=== PATIENT | male | born 1945 | race Caucasian/White ===

== ENCOUNTER → 2017-01-18 | Outpatient (CLI) | payer OTHER ==
[~2017-01-18] MED LIST: IOPAMIDOL (ISOVUE 370) 100 ML BTL IV ONE
== END ==
LOC: CIMAGING 08:00
PROVIDERS: ATTEND Family Medicine
DX: I71.4 Abdominal aortic aneurysm, without rupture (principal); K57.90 Diverticulosis of intestine, part unspecified, without perforation or abscess without bleeding; K44.9 Diaphragmatic hernia without obstruction or gangrene
CPT/HCPCS: 74174; Q9967

== ENCOUNTER → 2017-09-11 | Outpatient (CLI) | payer OTHER | LOC: CIMAGING 16:01 | PROVIDERS: ATTEND Family Medicine | DX: E78.5 Hyperlipidemia, unspecified (principal); I25.10 Atherosclerotic heart disease of native coronary artery without angina pectoris | CPT/HCPCS: 71046-PO ==

== ENCOUNTER 2017-09-24 08:07 | Inpatient (IN) | payer OTHER ==
--- NOTE | 2017-09-18 14:06 | GHP ---
[f rep st] PREOP HISTORY AND PHYSICAL CHIEF COMPLAINT: Right shoulder pain and weakness. HISTORY OF PRESENT ILLNESS: The patient is a 72-year-old male with a long history of right shoulder pain and weakness worsening with use and with time. Imaging studies revealed a large, full-thickness rotator cuff tear as well as glenohumeral joint arthritis. ALLERGIES: He has no drug allergies. CURRENT MEDICATIONS: Atorvastatin, carvedilol, Coreg, ramipril, tramadol and Zyrtec. PRIOR MEDICAL PROBLEMS: Coronary artery disease. PRIOR SURGERIES: Bilateral cataracts and aortic aneurysm. SOCIAL HISTORY: He is a former smoker. Social drinker. PHYSICAL EXAMINATION: EYES: Pupils equal, round, and reactive to light. CHEST : Clear to auscultation. HEART: Regular rate and rhythm. ABDOMEN: Soft and nontender. EXTREMITIES: Right shoulder reveals significant decreases in range of motion as well as weakness to external rotation and supraspinatus. IMAGING DATA: The MRI reveals a full-thickness rotator cuff tear with atrophy of the supraspinatus as well as osteoarthritic changes of the glenohumeral joint. ASSESSMENT: Patient is status post right shoulder osteoarthritis with chronic rotator cuff tear. PLAN: Taken to the operating room to undergo a reverse right total shoulder arthroplasty. /[id number]/MODL MTDD
--- NOTE | 2017-09-24 07:29 | PDHPUP ---
History & Physical Update H&P update statement: This history and physical update is based on an assessment of the patient which was completed after admission or registration (within 24 hours), but prior to the surgery/procedure. H&P update: H&P reviewed & patient examined, no change in patient's condition since H&P completed
[~2017-09-24 08:07] MED LIST changes: +ACETAMINOPHEN 500 MG TAB PO ONE; -IOPAMIDOL (ISOVUE 370) 100 ML BTL IV ONE; +PREGABALIN 150 MG CAP PO ONE; +ROPIVACAINE 0.2% 80 MG, EPINEPHrine 0.2 MG, KETOROLAC TROMETHAMINE 30 MG, morphINE 10 M... IU ONE; +TRANEXAMIC ACID 3,000 MG in NS 50 ML IRR ONE; +ceFAZolin 2 GM/SWFI 2 GM/20 ML SYR IVP ONE
[2017-09-24] MEDS ORDERED: POLYMYXIN B SULFATE 500,000 UNIT/10 ML SYR IRR ONE (08:16)
[2017-09-24] MEDS ORDERED: BACITRACIN 50,000 UNITS/10 ML SYR IRR ONE (08:16)
[2017-09-24] MEDS ORDERED: BUPIVACAINE/EPI 0.5% 30 ML SDV ONE (08:16)
[2017-09-24] MEDS ORDERED: TRANEXAMIC ACID 3,000 MG/50 ML BAG IRR ONE (08:17)
[2017-09-24] MEDS ORDERED: LR 1,000 ML IV ONE (08:39)
[2017-09-24] MEDS ORDERED: PREGABALIN 150 MG CAP ONE (09:22)
[2017-09-24] MEDS ORDERED: ACETAMINOPHEN 500 MG TAB ONE (09:23)
[2017-09-24] MEDS ORDERED: ceFAZolin 2 GM/SWFI 20 ML SYR IVP ONE (09:23)
--- NOTE | 2017-09-24 10:37 | PDANEPAE ---
ANE History of Present Illness OA and painful shoulder ANE Past Medical History - Cardiovascular History Hx Hypertension: Yes Hx Arrhythmias: No Hx Chest Pain: No Hx Coronary Artery / Peripheral Vascular Disease: Yes Hx CHF / Valvular Disease: No Hx Palpitations: No Cardiovascular History Comment: [place] 2001 - Pulmonary History Hx COPD: No Hx Asthma/Reactive Airway Disease: No Hx Recent Upper Respiratory Infection: No Hx Oxygen in Use at Home: No Hx Sleep Apnea: No Sleep Apnea Screening Result - Last Documented: Positive Pulmonary History Comment: CURRENTLY HAS URI AND ON ANTIBIOTIC - Neurologic History Hx Cerebrovascular Accident: No Hx Seizures: No Hx Dementia: No - Endocrine History Hx Diabetes: No - Renal History Hx Renal Disorders: No - Liver History Hx Hepatic Disorders: No - Neurological & Psychiatric Hx Hx Neurological and Psychiatric Disorders: No - Cancer History Hx Cancer: No - Congenital Disorder History Hx Congenital Disorders: No - GI History Hx Gastrointestinal Disorders: No - Other Health History Other Health History: PHERIPHERAL VASCULAR DX. CHANDAN SHLDR PAIN AND DISCOMFORT - Chronic Pain History Chronic Pain: Yes (RT SHLDR) - Surgical History Prior Surgeries: AAA 04/2003. CHANDAN CATARACT. DEVIATED SEPTUM ANE Review of Systems Review of Systems: - Exercise capacity METS (RN): 4 METS ANE Patient History - Allergies Allergies/Adverse Reactions: hydromorphone [From Dilaudid] Allergy (Verified 09/24/17 09:33) nausea/vomiting - Home Medications Home medications: home medication list seen and reviewed Home Medications: Ascorbic Acid [Vitamin C 500 mg (*)] 500 mg PO DAILY 09/10/17 [Last Taken 1 Week Ago ~09/17/17] Aspirin EC [Aspirin EC 81 mg (*)] 81 mg PO HS 09/10/17 [Last Taken 2 Months Ago ~07/25/17] Atorvastatin Calcium [Lipitor 80 mg] 160 mg PO DAILY 09/10/17 [Last Taken ] Carvedilol [Coreg (*)] 3.125 mg PO BIDMEAL 09/10/17 [Last Taken 09/24/17] Cholecalciferol Vit D3 [Vitamin D3 (*)] 2,000 units PO DAILY 09/10/17 [Last Taken 1 Week Ago ~09/17/17] Fluticasone Nasal [Flonase Nasal [place] (RX)] 1 sprays EACHNARE DAILY PRN [Last Taken 09/23/17] Herbals/Supplements -Info Only 1 ea PO HS 09/10/17 [Last Taken 1 Week Ago ~09/17] Ibuprofen [Motrin (*)] 200 - 600 mg PO DAILY PRN 09/10/17 [Last Taken 1 Week Ago ~09/17/17] Montelukast Sodium [Singulair 10 mg (*)] 10 mg PO DAILY@1800 PRN 09/10/17 [Last Taken 2 Months Ago ~07/25/17] Multivitamins [Multivitamin (*)] 1 each PO DAILY 09/10/17 [Last Taken 1 Week Ago ~09/17/17] Niacin [Niacin 500 mg (*)] 500 mg PO DAILY 09/10/17 [Last Taken 1 Week Ago ~05/27] Ramipril [Altace 2.5mg (*)] 2.5 mg PO DAILY 09/10/17 [Last Taken 09/24/17] Vitamin B Complex [B Complex] 1 each PO DAILY 09/10/17 [Last Taken 1 Week Ago ~ 09/17/17] - NPO status NPO Since - Liquids (Date): 09/24/17 NPO Since - Liquids (Time): 07:00 NPO Since - Solids (Date): 09/23/17 NPO Since - Solids (Time): 20:00 - Anes Hx Anes Hx: no prior problems - Smoking Hx Smoking Status: Former smoker ANE Labs/Vital Signs - Vital Signs Blood Pressure: 139/77 Heart Rate: 64 Respiratory Rate: 16 O2 Sat (%): 91 Height: 187.96 cm Weight: 97.522 kg ANE Physical Exam - Airway Neck exam: FROM Mallampati Score: Class 2 Mouth exam: normal dental/mouth exam - Pulmonary Pulmonary: no respiratory distress - Cardiovascular Cardiovascular: regular rate and rhythym - ASA Status ASA Status: III ANE Anesthesia Plan Anesthesia Plan: GA w LMA Regional Anesthesia: supraclavicular BP NB
[2017-09-24] MEDS ORDERED: MIDAZOLAM 2 MG/2 ML VIAL IVP ONE (10:38)
[2017-09-24] MEDS ORDERED: ROPIVACAINE HCL 150 MG/30 ML INJ ONE ×2 (10:45→10:50)
[2017-09-24] MEDS ORDERED: fentaNYL 100 MCG/2 ML INJ ONE ×2 (10:45→13:22)
[2017-09-24] MEDS ORDERED: PROPOFOL 200 MG/20 ML VIAL ONE (10:45)
[2017-09-24] MEDS ORDERED: CALCIUM CHLORIDE 1 GM/10 ML INJ ONE (11:31)
[2017-09-24] MEDS ORDERED: THROMBIN (BOVINE) 5,000 UNIT VIAL TP ONE (11:31)
[2017-09-24] MEDS ORDERED: LIDOCAINE 2% 5 ML SDV ONE (11:34)
[2017-09-24] MEDS ORDERED: DEXAMETHASONE 4 MG/ML VIAL ONE (11:34)
[2017-09-24] MEDS ORDERED: PROMETHAZINE HCL 25 MG/ML INJ IVP PRN (12:19)
[2017-09-24] MEDS ORDERED: ONDANSETRON 4 MG/2 ML VIAL IVP PRN ×2 (12:19→13:46)
[2017-09-24] MEDS ORDERED: fentaNYL 100 MCG/2 ML INJ IVP PRN (12:19)
[2017-09-24] MEDS ORDERED: NALOXONE HCL 0.4 MG/ML INJ IVP PRN (12:19)
[2017-09-24] MEDS ORDERED: ONDANSETRON 4 MG/2 ML VIAL ONE (12:22)
[2017-09-24] MEDS ORDERED: TEMAZEPAM 15 MG CAP PO PRN (13:46)
[2017-09-24] MEDS ORDERED: OXYCODONE/APAP 5/325 TAB PO PRN (13:46)
--- NOTE | 2017-09-24 13:46 | POSTOPPROG ---
Post Op Note Date of Operation: 09/24/17 Surgeon: Simona Arreola Braiding Machine Tender: roselyn Anesthesiologist: selina Anesthesia: LMA, Other (Specify) Pre-op Diagnosis: r shoulder oa with RCT Procedure: reverse r tsa Inf/Abcess present in the surg proc area at time of surgery?: No Depth: Deep Incisional (Fascial) EBL: 100-500
[2017-09-24] MEDS ORDERED: TAPENTADOL HCL 50 MG TAB PO PRN (13:49)
[2017-09-24] MEDS ORDERED: FLUTICASONE NASAL 120 SPRAYS/16 GM MDI EACHNARE PRN (13:49)
--- NOTE | 2017-09-24 13:55 | POSTANESTH ---
Post Anesthetic Evaluation Cardiovascular Status: Normal, Stable Respiratory Status: Normal, Stable Level of Consciousness/Mental Status: Can Participate in Eval Pain Control: Adequate, Prn Tx Ordered Nausea/Vomiting Control: Adequate, Prn Tx Ordered Complications Possibly Related to Anesthesia: None Noted
[2017-09-24] MEDS ORDERED: ceFAZolin 2 GM/DEXTROSE 100 ML IV SCH (14:00)
--- NOTE | 2017-09-24 14:41 | GOP ---
[f rep st] OPERATIVE REPORT DATE OF OPERATION: 09/24/2017 SURGEON: Simona Arreola MD TAKE DOWN INSPECTOR: Kamar Soriano, DAYLINA, LSA, whose presence was medically necessary. ANESTHESIA: LMA plus scalene nerve block per surgeon's request. PREOPERATIVE DIAGNOSIS: Right shoulder osteoarthritis with rotator cuff tear. POSTOPERATIVE DIAGNOSIS: Right shoulder osteoarthritis with rotator cuff tear. PROCEDURE PERFORMED: Right reverse total shoulder arthroplasty. FINDINGS: INDICATIONS: This is a 72-year-old male with a long history of right shoulder pain worsening with us e and with time despite multiple conservative measures. Imaging studies have revealed chronic rotato r cuff tear as well as severe osteoarthritic changes to the shoulder. He wishes to have surgery in or bev to resolve the problem. DESCRIPTION OF PROCEDURE: Patient brought to the operating room after the right side had been identi fied as correct side by the patient, nurse and physician. Once in the operating room, he was given a scalene block on the right side then placed under general anesthesia using LMA. Once asleep, he was p laced in a beach chair position with the right upper extremity sterilely prepped and draped in usual fashion using GSI solution. Once prepped and draped, a linear incision was made starting at the axil enriqueta fold and heading just lateral to the coracoid process with sharp dissection carried down through the skin and subcutaneous layers and bleeding controlled using electrocautery. Blunt dissection was carried down through the deltopectoral interval with the cephalic vein carried with the pectoralis. Deeper dissection the fascia from the conjoined tendon giving exposure to the capsule below . There was no discernible supraspinatus or significant subscapularis but thick inflamed capsule arou nd the actual shoulder itself. This was incised approximately a centimeter off its attachment onto th e shoulder. There was no biceps tendon noted although the biceps groove was in the area. He was noted to have a great amount of spurring associated with the humeral head as well as [id number] osteoart hritic changes to the humeral head and glenoid. A 30 degree offset guide was placed against the prox imal portion of the humerus, was marked using electrocautery and an oscillating saw was used to cut t he humeral head off. Once completed, the canal finder was placed in the humerus at which point multip le broaches were placed within the shoulder and a size 16 seemed to fit best. A size 16 was then att ached onto a reversed body on a large body. Trial was then placed within the humeral canal and a ream er creating a concavity within the proximal humerus was passed over the neck associated with this. On ce completed, attention was turned to the glenoid with the arm brought to a more neutral position and able to be subluxed posteriorly. Soft tissue was cleared from around the end of the glenoid and the bony spurs were removed from around the edge of the glenoid. Once we had adequately cleared, a wire g uide was passed just inferior to the equator of the glenoid itself and then a glenoid reamer was pass ed over the guidewire in order to achieve bleeding bone and then a central post drill was passed over the guidewire into the glenoid. Rill guide was then placed into the center hole and drill holes were made both superiorly and inferiorly for the glenoid base plate, at which point, the wound was thorou ghly irrigated with antibiotic solution. A 15 mm base plate was placed into the glenoid and noted to fit securely. A center post screw as well as superior, inferior, anterior and posterior screws were able to be placed in the glenoid achieving good fixation with each screw. A trial head was put into place and noted to fit securely. Therefore, a 5 mm concentric glenosphere was put into place and no tasha to fit securely. Attention was turned back to the humerus, with the trial removed and a 16 stem with a large reverse body was put into place. Multiple trials were used and noted that a +9 retentiv e polyethylene liner would fit best. Therefore, the humeral component was thoroughly irrigated. The retentive +9 poly liner was put into place. The shoulder was reduced, noted to fit securely with go od range of motion and good stability. The wound was again thoroughly irrigated with antibiotic solu tion. 0 Vicryl suture were used to close the capsular layer with plasma gel placed intra-articularly after joint cocktail had been injected into the posterior capsule and along the periosteum associate d with the glenoid and the proximal humerus. Tranexamic acid was also injected into the intracapsula r portion of the glenohumeral joint. Tranexamic acid was then irrigated through the outside of the c apsular layer and 0 Vicryl suture was used to tag the deltopectoral interval. An 0 Vicryl and 2-0 Vi cryl suture were used for the subcutaneous layers, and a 3-0 V-Loc suture in a running subcuticular s titch used for the skin. Then, 30 cc of Marcaine was infused around the actual incision itself and t he wound was then dressed with Steri-Strips, Xeroform, 4 x 4, and Tegaderm. He was completely undrap ed in the operating room, had a shoulder immobilizer placed on the right upper extremity. He was the n woken up, extubated, transferred onto a bed, sent to recovery room in good condition. /[id number]/MODL
[2017-09-24] MEDS: ACETAMINOPHEN 325 MG TAB PO SCH ×3 (15:25→22:24)
[2017-09-24] MEDS ORDERED: MONTELUKAST SODIUM 10 MG TAB PO PRN (18:00)
[2017-09-24] MEDS: ceFAZolin 2 GM/DEXTROSE 100 ML IV SCH (18:02)
[2017-09-24] MEDS: CARVEDILOL 3.125 MG TAB PO SCH (18:02)
[2017-09-24] MEDS: KETOROLAC 15 MG/1 ML SDV IVP SCH (18:04)
[2017-09-24] MEDS: traMADol 50 MG TAB PO SCH (18:05)
[2017-09-24] MEDS ORDERED: ASPIRIN EC 81 MG TAB PO SCH (21:00)
[2017-09-25] MEDS: KETOROLAC 15 MG/1 ML SDV IVP SCH ×2 (03:23→06:04)
[2017-09-25] MEDS: traMADol 50 MG TAB PO SCH ×2 (03:24→06:04)
[2017-09-25] MEDS: ACETAMINOPHEN 325 MG TAB PO SCH ×2 (03:31→06:05)
[2017-09-25] MEDS: ceFAZolin 2 GM/DEXTROSE 100 ML IV SCH (03:31)
[2017-09-25 03:41] VITALS: RESP 16
[2017-09-25 07:40] VITALS: PULSE 60; TEMP 98.1; O2SAT 92
[2017-09-25] MEDS: CARVEDILOL 3.125 MG TAB PO SCH (08:08)
[2017-09-25] MEDS ORDERED: NIACIN 500 MG TAB PO SCH (09:00)
[2017-09-25] MEDS ORDERED: ATORVASTATIN CALCIUM PO SCH (09:00)
[2017-09-25] MEDS ORDERED: ATORVASTATIN CALCIUM 40 MG TAB PO SCH (09:00)
[2017-09-25] MEDS ORDERED: RAMIPRIL 2.5 MG CAP PO SCH (09:00)
[2017-09-25] MEDS ORDERED: ASCORBIC ACID 500 MG TAB PO SCH (09:00)
[2017-09-25 09:01] VITALS: BP 102/60
--- NOTE | 2017-09-25 09:13 | SOAPPROG ---
SOAP Progress Note Assessment/Plan: Assessment: Plan: - incentive spirometry - can d/c if sats improve 09/25/17 09:12 Subjective: Doing well, pain minimal, feels ready to go home, denies dyspnea Objective: Vital Signs Temp Pulse Resp BP Pulse Ox 36.7 C 60 16 102/60 92 09/25/17 07:38 09/25/17 08:08 09/25/17 07:38 09/25/17 09:01 09/25/17 07:38 09/24/17 09/25/17 09/26/17 05:59 05:59 05:59 Intake Total 1300 Output Total 775 Balance 525 O2 sat 88 on 1.5 L, dressing cdi, compartments soft, nvi - Time Spent With Patient Time Spent With Patient: 10 - Pending Discharge Pending Discharge Within 24 Hours: Yes Pending Discharge Within 48 Hours: No Pending Discharge Date: 09/26/17 Pending Discharge Time: 11:00 ICD10 Worksheet Patient Problems: Problems Problem Status Onset Arthritis, shoulder region Acute - ICD10 Problem Qualifiers (1) Arthritis, shoulder region
--- NOTE | 2017-09-25 10:39 | ASDISCHSUM ---
Discharge Information Plan Status:Home with No Needs Medically Cleared to Leave: Discharge Date:09/25/2017 10:15 AM CM D/C Disposition:Home, Routine, Self-Care ADT D/C Disposition:Home, Routine, Self-Care Projected Discharge Date:09/25/2017 10:15 AM Transportation at D/C: Discharge Delay Reason: Follow-Up Date:09/25/2017 10:15 AM Discharge Slot: Final Diagnosis: Placement Information Patient Contact Information Contact Name:GREGORIO Relationship: Address:[address] City:[place] Phone: [facility]/Zip Code:[place] [address] Email: Financial Information Financial Class:Medicare Advantage Plans Primary Plan Desc:[employer] PPO MEDICARE Primary Plan Number:[id number] Secondary Plan Desc: Secondary Plan Number: Assessment Information [facility] CM Progress Note CM Note CM Note Notes: Pt medically stable for d/c, no CM d/c needs identified. Date Signed: 09/25/2017 10:38 AM Electronically Signed By:TENA Mcfarland Intervention Information
== END 2017-09-25 10:15 | disposition home or self-care (01) | DRG 483 ==
LOC: F3N 08:07
PROVIDERS: ADMIT Orthopaedic Surgery; ATTEND Orthopaedic Surgery
PROC: 0RRJ00Z Replacement of Right Shoulder Joint with Reverse Ball and Socket Synthetic Substitute, Open Approach (ICD-10-PCS; principal; 2017-09-24 10:00)
DX: M75.121 Complete rotator cuff tear or rupture of right shoulder, not specified as traumatic (principal); M19.011 Primary osteoarthritis, right shoulder; I25.10 Atherosclerotic heart disease of native coronary artery without angina pectoris; Z87.891 Personal history of nicotine dependence; I10 Essential (primary) hypertension; I25.2 Old myocardial infarction
CPT/HCPCS: C1713; J0171; J0690; J1100; J1885; J2250; J2405; J2704; J2795; J3010

== ENCOUNTER 2018-03-14 10:56 | Day surgery (SDC) | payer OTHER ==
--- NOTE | 2018-03-13 21:42 | GHP ---
[f rep st] PRE-OP HISTORY AND PHYSICAL CURRENT COMPLAINT: Right shoulder pain. HISTORY OF PRESENT ILLNESS: The patient is a 72-year-old male, who has previously undergone a right total shoulder arthroplasty, had been doing very well up until last week when he tugged hard on a hose, felt a clunk in his shoulder. X-ray exams revealed loosening of his Glenosphere. He wishes to have surgery in order to resolve the problem. ALLERGIES: He lists no prior drug allergies. CURRENT MEDICATIONS: Include atorvastatin, carvedilol, Coreg, Flonase, ramipril , and Zyrtec. PRIOR MEDICAL PROBLEMS: Include coronary artery disease, prior heart attack. PRIOR SURGERIES: Include a right reverse total shoulder replacement. Bilateral cataract surgery. An aortic aneurysm. SOCIAL HISTORY: He is a former smoker and a social drinker. PHYSICAL EXAM: EXTREMITIES: Patient is intact distally into the arm with pain to range of motion and metallic noise to range of motion. EYES: His pupils are equal, round, and reactive to light. CHEST: Clear to auscultation. HEART : Regular rate and rhythm. ABDOMEN: Soft and nontender. IMAGING: X-ray exam reveals a loosened Glenosphere. ASSESSMENT AND PLAN: Patient is status post right reverse total shoulder failure. Plan is to take him to the operating room to undergo a right total shoulder revision with reimplantation of Glenosphere. /[id number]/MODL MTDD
[2018-03-14] MEDS ORDERED: ceFAZolin 2 GM/DEXTROSE 100 ML IV ONE (11:19)
[2018-03-14] MEDS ORDERED: ACETAMINOPHEN 500 MG TAB PO ONE (11:19)
[2018-03-14] MEDS ORDERED: TRANEXAMIC ACID 3,000 MG in NS (SYRINGE) 50 ML IRR ONE (11:19)
[2018-03-14] MEDS ORDERED: ROPIVACAINE 0.2% 80 MG, EPINEPHrine 0.2 MG, KETOROLAC TROMETHAMINE 30 MG, morphINE 10 M... IU ONE (11:19)
[2018-03-14] MEDS ORDERED: LIDOCAINE 1% 2 ML INJ ID PRN (11:20)
[2018-03-14] MEDS ORDERED: LR 1,000 ML IV ONE (11:20)
[2018-03-14] MEDS ORDERED: ROPIVACAINE HCL 150 MG/30 ML INJ ONE (11:40)
[2018-03-14] MEDS ORDERED: BUPIVACAINE/EPI 0.5% 30 ML SDV ONE (11:41)
[2018-03-14] MEDS ORDERED: POLYMYXIN B SULFATE 500,000 UNIT/10 ML SYR IRR ONE (11:42)
[2018-03-14] MEDS ORDERED: fentaNYL 100 MCG/2 ML INJ ONE ×2 (11:53→13:52)
--- NOTE | 2018-03-14 12:15 | PDANEPAE ---
ANE History of Present Illness right shoulder arthroplasty ANE Past Medical History - Cardiovascular History Hx Hypertension: Yes Hx Arrhythmias: No Hx Chest Pain: No Hx Coronary Artery / Peripheral Vascular Disease: Yes Hx CHF / Valvular Disease: No Hx Palpitations: No Cardiovascular History Comment: [place] 2001 - Pulmonary History Hx COPD: No Hx Asthma/Reactive Airway Disease: No Hx Recent Upper Respiratory Infection: No Hx Oxygen in Use at Home: No Hx Sleep Apnea: No Pulmonary History Comment: CURRENTLY HAS URI AND ON ANTIBIOTIC - Neurologic History Hx Cerebrovascular Accident: No Hx Seizures: No Hx Dementia: No - Endocrine History Hx Diabetes: No Hypothyroid: No Hyperthyroid: No Obesity: no - Renal History Hx Renal Disorders: No - Liver History Hx Hepatic Disorders: No - Neurological & Psychiatric Hx Hx Neurological and Psychiatric Disorders: No - Cancer History Hx Cancer: No - Congenital Disorder History Hx Congenital Disorders: No - GI History Hx Gastrointestinal Disorders: No - Other Health History Other Health History: PHERIPHERAL VASCULAR DX. CHANDAN SHLDR PAIN AND DISCOMFORT - Chronic Pain History Chronic Pain: Yes (RT SHLDR) - Surgical History Prior Surgeries: AAA 04/2003. CHANDAN CATARACT. DEVIATED SEPTUM ANE Review of Systems Review of systems is: negative Review of Systems: ANE Patient History - Allergies Allergies/Adverse Reactions: hydromorphone [From Dilaudid] Allergy (Verified 09/24/17 09:33) nausea/vomiting - Home Medications Home medications: home medication list seen and reviewed Home Medications: Ascorbic Acid [Vitamin C 500 mg (*)] 500 mg PO DAILY 09/10/17 [Last Taken 06:30] Aspirin EC [Aspirin EC 81 mg (*)] 81 mg PO HS 09/10/17 [Last Taken 1 Month Ago ~ 02/12/18] Atorvastatin Calcium [Lipitor 80 mg] 160 mg PO DAILY 09/10/17 [Last Taken 06:30] Carvedilol [Coreg (*)] 3.125 mg PO BIDMEAL 09/10/17 [Last Taken 03/14/18 08:00] Cholecalciferol Vit D3 [Vitamin D3 (*)] 2,000 units PO DAILY 09/10/17 [Last Taken 03/13/18 06:30] Fluticasone Nasal [Flonase Nasal [place]] 1 sprays EACHNARE DAILY PRN 09/10/17 [ Last Taken 1 Month Ago ~02/12/18] Herbals/Supplements -Info Only 1 ea PO HS 09/10/17 [Last Taken 03/13/18 06:30] Ibuprofen [Motrin (*)] 200 - 600 mg PO DAILY PRN 09/10/17 [Last Taken 03/13/18 06:30] Montelukast Sodium [Singulair 10 mg (*)] 10 mg PO DAILY@1800 PRN 09/10/17 [Last Taken 1 Month Ago ~02/12/18] Multivitamins [Multivitamin (*)] 1 each PO DAILY 09/10/17 [Last Taken 03/13/18 06:30] Niacin [Niacin 500 mg (*)] 500 mg PO DAILY 09/10/17 [Last Taken 03/13/18 06:30] Ramipril [Altace 2.5mg (*)] 2.5 mg PO DAILY 09/10/17 [Last Taken 03/13/18 06:30] Vitamin B Complex [B Complex] 1 each PO DAILY 09/10/17 [Last Taken 03/13/18 06: 30] [place] 5/325 (*) 03/14/18 [Last Taken 03/13/18] - Anes Hx Anes Hx: no prior problems - Smoking Hx Smoking Status: Former smoker ANE Labs/Vital Signs - Vital Signs Blood Pressure: 127/76 Heart Rate: 58 Respiratory Rate: 16 O2 Sat (%): 88 Height: 187.96 cm Weight: 102.058 kg ANE Physical Exam - Airway Neck exam: FROM Mallampati Score: Class 1 Mouth exam: normal dental/mouth exam - Pulmonary Pulmonary: no respiratory distress - Cardiovascular Cardiovascular: regular rate and rhythym - ASA Status ASA Status: III ANE Anesthesia Plan Anesthesia Plan: general endotracheal anesthesia Regional Anesthesia: interscalene BP NB
[2018-03-14] MEDS ORDERED: MIDAZOLAM 2 MG/2 ML VIAL IVP ONE (12:16)
[2018-03-14] MEDS ORDERED: MIDAZOLAM 2 MG/2 ML VIAL ONE (12:18)
[2018-03-14] MEDS ORDERED: PROPOFOL 200 MG/20 ML VIAL ONE (12:20)
[2018-03-14] MEDS ORDERED: DEXAMETHASONE 4 MG/ML VIAL ONE (12:25)
[2018-03-14] MEDS ORDERED: LIDOCAINE 2% 5 ML SDV ONE (12:25)
[2018-03-14] MEDS ORDERED: ONDANSETRON 4 MG/2 ML VIAL ONE (12:25)
[2018-03-14] MEDS ORDERED: THROMBIN (BOVINE) 5,000 UNIT VIAL TP ONE (13:01)
[2018-03-14] MEDS ORDERED: CALCIUM CHLORIDE 1 GM/10 ML INJ ONE (13:01)
--- NOTE | 2018-03-14 14:20 | POSTANESTH ---
Post Anesthetic Evaluation Cardiovascular Status: Normal, Stable Respiratory Status: Normal, Stable Level of Consciousness/Mental Status: Can Participate in Eval, Alert and Oriented Pain Control: Adequate, Prn Tx Ordered Nausea/Vomiting Control: Adequate, Prn Tx Ordered Complications Possibly Related to Anesthesia: None Noted
[2018-03-14] MEDS ORDERED: ALBUTEROL 3 ML DEYVIAL IH PRN (15:15)
[2018-03-14] MEDS ORDERED: NALOXONE HCL 0.4 MG/ML INJ IVP PRN (15:15)
[2018-03-14] MEDS ORDERED: LR 500 ML IV PRN (15:15)
[2018-03-14] MEDS ORDERED: fentaNYL 100 MCG/2 ML INJ IVP PRN (15:15)
[2018-03-14] MEDS ORDERED: PROMETHAZINE HCL 25 MG/ML INJ IVP PRN (15:15)
[2018-03-14] MEDS ORDERED: HYDROCODONE/APAP 5/325 TAB PO PRN (15:15)
[2018-03-14] MEDS ORDERED: ONDANSETRON 4 MG/2 ML VIAL IVP PRN (15:15)
[2018-03-14] MEDS ORDERED: ACETAMINOPHEN 500 MG TAB PO PRN (15:15)
[2018-03-14] MEDS ORDERED: oxyCODONE IR 5 MG TAB PO PRN (15:15)
[2018-03-14] MEDS ORDERED: LABETALOL HCL 5 MG/ML 20 ML MDV IVP PRN (15:15)
[2018-03-14] MEDS ORDERED: ceFAZolin 2 GM/DEXTROSE 100 ML IV SCH (15:55)
[2018-03-14] MEDS ORDERED: OXYCODONE/APAP 5/325 TAB PO PRN (15:55)
--- NOTE | 2018-03-14 15:55 | POSTOPPROG ---
Post Op Note Date of Operation: 03/14/18 Surgeon: Simona Arreola Anesthesia: GET(General Endotracheal), Other (Specify) Pre-op Diagnosis: r reverse TSA failure Procedure: r reverse TSA revision Inf/Abcess present in the surg proc area at time of surgery?: No Depth: Deep Incisional (Fascial) EBL: 100-500
--- NOTE | 2018-03-14 16:47 | GOP ---
[f rep st] OPERATIVE REPORT DATE OF OPERATION: 03/14/2018 SURGEON: Simona Arreola MD ANESTHESIA: Endotracheal intubation plus scalene nerve block per surgeon's request. PREOPERATIVE DIAGNOSIS: Right reverse total shoulder hardware failure. POSTOPERATIVE DIAGNOSIS: Right reverse total shoulder hardware failure. PROCEDURE PERFORMED: Right reverse total shoulder revision. FINDINGS: INDICATIONS: This is a 72-year-old male, who had previously undergone a right reverse total shoulder arthroplasty. He had been doing very well with high functioning up until several days ago when he s tates he pulled really hard on a hose, felt and heard a pop within the shoulder, and had immediate we akness. X-ray exam revealed the Glenosphere having disarticulated from the base plate. He wished to have surgery in order to resolve the problem. DESCRIPTION OF PROCEDURE: Patient was brought to the operating room. After the right side had been identified as correct side by the patient, nurse, and physician once in the operating room, he was gi indira a scalene block on the right side then placed under general anesthesia using endotracheal intubat ion. Once asleep, he was placed in a beach chair position with the right upper extremity sterilely p repped and draped in usual fashion using GSI solution. Once prepped and draped, incision was made al anita the old incision extending from the coracoid process to the axillary crease with sharp dissection carried down through the skin and subcutaneous layers with bleeding controlled using electrocautery. The deltopectoral interval was found and was able to be dissected from the abundant amount of scar tissue within the area. The deltoid was able to be retracted laterally and the pectoralis medially, getting access to the capsule. Below the capsule was then incised. An abundant amount of serosangui neous fluid was within the shoulder joint itself. Exposure was performed. The residual polyethylene liner in the humerus was removed with using combination of [place] and osteotome. Once removed, the d isplaced Glenosphere was able to be found. The base plate was thoroughly irrigated with an antibioti c solution including the rest of the shoulder over a liter of irrigation used in the area, and the ce ntric 5 mm Glenosphere was then put into place and noted to fit securely. Once fit in securely, tria l reduction was performed. We noted a +9 standard poly liner seemed to fit best. It gave good stabi lity without impinging on the inferior portion of the scapula. Therefore, a 9 mm standard polyethyle ne liner was snapped into the humeral portion. Once snapped into place, the arm was able to be reduc ed, was able have good range of motion and good stability. The wound was then thoroughly irrigated a gain with another liter of antibiotic solution. The posterior portion of the shoulder was injected u sing a joint cocktail and then tranexamic acid irrigated through the shoulder in order to alleviate b leeding and plasma gel placed within the glenohumeral joint. The capsule and the deeper muscular lay ers were closed using 0 Vicryl suture in a [id number] type stitch. The deltopectoral interval w as closed using tagging sutures of 0 Vicryl suture, and 0 Vicryl and 2-0 Vicryl sutures were used to close the subcutaneous layers. A 3-0 V-Loc suture was used in a running subcuticular stitch for the skin. The wound was then dressed with Steri-Strips, Xeroform, 4 x 4, and Tegaderm. He was completel y undraped in the operating room and had the right upper extremity placed in a sling. He was then wo senthil up, extubated, transferred onto a stretcher, and sent to recovery room in good condition. /[id number]/MODL
[2018-03-14] MEDS ORDERED: KETOROLAC 15 MG/1 ML SDV IVP SCH (18:00)
[2018-03-14] MEDS ORDERED: ACETAMINOPHEN 325 MG TAB PO SCH (18:00)
[2018-03-14 19:05] VITALS: BP 107/66
== END 2018-03-14 18:45 | disposition home or self-care (01) ==
LOC: FSGY 10:56
PROVIDERS: ATTEND Orthopaedic Surgery
PROC: 0RRJ00Z Replacement of Right Shoulder Joint with Reverse Ball and Socket Synthetic Substitute, Open Approach (ICD-10-PCS; principal; 2018-03-14 12:30)
DX: T84.098A Other mechanical complication of other internal joint prosthesis, initial encounter (principal); Z96.611 Presence of right artificial shoulder joint; J06.9 Acute upper respiratory infection, unspecified; I25.10 Atherosclerotic heart disease of native coronary artery without angina pectoris; I25.2 Old myocardial infarction; Z87.891 Personal history of nicotine dependence
CPT/HCPCS: J0171; J0690; J1100; J1885; J2250; J2270; J2405; J2704; J2795; J3010

== ENCOUNTER → 2018-07-09 | Outpatient (CLI) | payer OTHER | LOC: CIMAGING 08:13 | PROVIDERS: ATTEND Orthopaedic Surgery | DX: M24.411 Recurrent dislocation, right shoulder (principal); M75.81 Other shoulder lesions, right shoulder; R93.89 Abnormal findings on diagnostic imaging of other specified body structures; Z96.611 Presence of right artificial shoulder joint; Z98.890 Other specified postprocedural states | CPT/HCPCS: 73200-PO ==